=== PATIENT | male | born 1985 | race Caucasian/White ===

== ENCOUNTER 2018-02-10 18:47 | Emergency (ER) | payer MEDICAID ==
[~2018-02-10] VITALS: Ht 170.2 cm; Wt 85.4 kg
[2018-02-10 18:51] VITALS: BP 137/89; Ht 170.2 cm; Wt 85.4 kg
== END 2018-02-10 20:36 | disposition home or self-care (01) ==
LOC: ED 18:47
DX: R05 Cough (principal); I10 Essential (primary) hypertension; J02.9 Acute pharyngitis, unspecified